=== PATIENT | female | born 1990 | race Caucasian/White ===

== ENCOUNTER 2023-08-27 13:06 | Emergency (ER) | payer BC, SELFPAY ==
[2023-08-27 13:11] VITALS: BP 119/79; PULSE 95; TEMP 36.6; O2SAT 99; BMI 26.6
--- NOTE | 2023-08-27 13:21 | ECG_ITS ---
The [facility] Test Date: 2023-08-27 Pat Name: Sena Damian Department: Room: - Gender: Female [employer]: : 1990 Requested By: Order Number: [id number] Reading MD: NILA RATLIFF Measurements Intervals Pollard Rate: 77 P: 26 CO: 114 QRS: 57 QRSD: 84 T: 38 QT: 356 QTc: 388 Interpretive Statements 1100 Sinus rhythm 2210 Short CO interval 9150 abnormal ECG No previous ECG available for comparison Electronically Signed On 08-27-2023 18:21:13 EDT by NILA RATLIFF
--- NOTE | 2023-08-27 13:21 | CT_ITS ---
The [address] [address] Patient Name: ALBERT ZHENG MRN: [id number] date: 1990 Sex: F Assigned Patient Location: ED.MAIN Current Patient Location: Accession/Order Number: [id number] Exam Date: 08/27/2023 14:00 Report Date: 08/27/2023 14:48 At the request of: HORTENSIA EDWARDS Procedure: CT head/brain wo con EXAM: CT head/brain wo con HISTORY: Headache, vertigo COMPARISON: None. TECHNIQUE: Axial CT scans through the head were obtained without IV contrast administration. Dose reduction techniques were achieved by using: automated exposure control and/or adjustment of mA and /or kV according to patient size and/or use of iterative reconstruction technique. FINDINGS: There is no acute intracranial hemorrhage or abnormal extra-axial fluid collection. No mass effect or midline shift is seen. There is no evidence of large acute territorial infarction. There is no hydrocephalus. To the limit of CT, the posterior fossa appears unremarkable. Partially empty sella is noted. The calvaria and extra cranial soft tissues are unremarkable. The visualized orbits show no abnormality. The visualized paranasal sinuses show no air-fluid level. Mastoid air cells are clear. CT/CT head/brain wo con IMPRESSION: No acute intracranial process. Partially empty sella which is a common normal variant but can be associated with headaches and visual disturbances. Electronically authenticated by: DOMO UNLU Date: 08/27/2023 14:48
--- NOTE | 2023-08-27 13:23 | ED_ITS ---
HPI HPI - General Adult General Chief complaint: Dizziness Stated complaint: DIZZINESS/NAUSEA Time Seen by Provider: 08/27/23 13:07 Source: patient Mode of arrival: walk-in Limitations: no limitations History of Present Illness HPI narrative: Patient is a 33-year-old female who presents to the emergency department for 2- day history of vertigo type symptoms. She denies fevers, cough or congestion. She states she felt dizzy yesterday and took Dramamine, her symptoms resolved but then returned this morning so she wanted to be evaluated. She states they are not as severe today. She states she had a migraine 2 weeks ago that was the worst migraine she is ever had. She has not had any persistent headache, visual loss, peripheral paresthesias. She had an episode of vomiting yesterday. At time of my initial interview, patient is sitting upright in no distress with the lights on with no photophobia or dizziness with change in the position of her head. She is not concerned for . Related Data Previous Rx's ?Medication ?Instructions ?Recorded meclizine 25 mg chewable tablet 25 mg PO QID PRN dizziness #12 tabs 08/27/23 (Antivert) ondansetron 4 mg disintegrating 4 mg PO Q6H PRN nausea and 08/27/23 tablet vomiting #12 tabs Allergies Allergy/AdvReac Type Severity Reaction Status Date / Time No Known Drug Allergies Allergy Verified 08/27/23 13:10 Opioid HPI Opioid Management Most Recent Opioid Data: No Data to Display Review of Systems ROS Constitutional Denies: fever or chills Ears, nose, mouth, and throat Denies: throat pain or nasal congestion Cardiovascular Denies: chest pain Respiratory Denies: shortness of breath Gastrointestinal Denies: nausea or vomiting Musculoskeletal Denies: back pain Integumentary/Breast Denies: rash Neurological Reports: headache, dizziness and vertigo; Denies: numbness in extremities or weakness in extremities Endocrine Denies: excessive urination Hematologic/Lymphatic Denies: easy bruising or easy bleeding Exam Narrative Exam Narrative: Gen.: Awake, alert, in no distress Head: Normocephalic, atraumatic ENT: Moist mucous membranes, Left TM is partially obscured by dark wax, right TM with minimal fluid Respiratory: No respiratory distress, lungs clear bilaterally Cardio: Regular rate and rhythm Extremities: Moves extremities equally, no injuries noted Psych: Normal mood and affect Neuro: No focal neuro deficit Skin: Warm, dry, intact Constitutional Vital Signs, click to edit/add: Last Vital Signs Temp 97.9 F 08/27/23 13:11 Pulse 83 08/27/23 14:00 Resp 14 08/27/23 14:00 BP 119/79 08/27/23 13:11 Pulse Ox 99 08/27/23 13:11 O2 Del Method Room Air 08/27/23 13:11 Course Vital Signs Vital signs: Vital Signs Temperature 97.9 F 08/27/23 13:11 Pulse Rate 95 H 08/27/23 13:11 Respiratory Rate 18 08/27/23 13:11 Blood Pressure 119/79 08/27/23 13:11 Pulse Oximetry 99 08/27/23 13:11 Oxygen Delivery Method Room Air 08/27/23 13:11 Temperature 97.9 F 08/27/23 13:11 Pulse Rate 83 08/27/23 14:00 Respiratory Rate 14 08/27/23 14:00 Blood Pressure 119/79 08/27/23 13:11 Pulse Oximetry 99 08/27/23 13:11 Oxygen Delivery Method Room Air 08/27/23 13:11 Medical Decision Making MDM Narrative Medical decision making narrative: Patient treated with IV fluids, Zofran, Antivert. Vital signs are within normal limits. Her lab studies are unremarkable and CT of the brain is also within normal limits. Patient is discharged home with Antivert and Zofran. She was given Debrox for the left ear to irrigate it. She should follow-up with PCP and return to the ER if symptoms change or worsen. Her CT of the brain shows a partially empty sella turcica, she was made aware of this result which may contribute to Headaches, she should follow-up with neurology for this. She was given a referral for neurology for follow-up as well. Medical Records Medical records reviewed: Yes I reviewed the patient's medical records Lab Data Lab results reviewed: Yes I reviewed the patient's lab results Labs: Lab Results 08/27/23 08/27/23 Range/Units 13:34 13:38 WBC 12.3 H (4.0-11.0) 10^3/uL RBC 4.24 (4.20-5.40) 10^6/uL Hgb 13.2 (12.0-16.0) g/dL Hct 39.9 (36.0-48.0) % MCV 94.1 (81.0-99.0) fL MCH 31.1 (26.7-34.0) pg MCHC 33.1 (29.9-35.2) g/dL RDW 13.1 (11.0-15.0) % Plt Count 291 (150-450) 10^3/uL MPV 10.0 (9.5-13.5) fL Neut % (Auto) 62.3 (43.0-75.0) % Lymph % (Auto) 24.3 (20.5-60.0) % Pershing % (Auto) 8.3 (1.7-12.0) % Eos % (Auto) 4.2 (0.9-7.0) % Baso % (Auto) 0.6 (0.2-2.0) % Neut # (Auto) 7.7 H (1.4-6.5) 10^3/uL Lymph # (Auto) 3.0 (1.2-3.8) 10^3/uL Pershing # (Auto) 1.0 H (0.3-0.8) 10^3/uL Eos # (Auto) 0.5 (0.0-0.7) 10^3/uL Baso # (Auto) 0.1 (0.0-0.1) 10^3/uL Abs Immat Gran (auto) 0.04 H (0.00-0.03) 10^3/uL Imm/Tot Granulo (auto) 0.3 (0.0-0.5) % Sodium 139 (136-145) mmol/L Potassium 3.9 (3.5-5.1) mmol/L Chloride 104 (98-107) mmol/L Carbon Dioxide 27.0 (21.0-32.0) mmol/L Anion Gap 11.9 BUN 12.0 (7.0-18.0) mg/dL Creatinine 0.86 (0.55-1.02) mg/dL Est GFR ( Amer) >60 (>=60) Est GFR (Non-Af Amer) >60 (>=60) BUN/Creatinine Ratio 14.0 Glucose 95 (74-106) mg/dL Calcium 9.0 (8.5-10.1) mg/dL Total Bilirubin 0.2 (0.2-1.0) mg/dL AST 11 L (15-37) U/L ALT 18 (14-59) U/L Alkaline Phosphatase 70 (46-116) U/L Total Protein 6.9 (6.4-8.2) g/dL Albumin 3.4 (3.4-5.0) g/dL Globulin 3.5 g/dL Albumin/Globulin Ratio 1.0 Serum HCG, Qual Negative (NEGATIVE) Urine Color Lt. yellow (YELLOW) Urine Clarity Clear (CLEAR) Urine pH 6.5 (5.0-9.0) Ur Specific Nitro <=1.005 A (1.005-1.025) Urine Protein Negative (NEG/TRACE) mg/dL Urine Glucose (UA) Negative (NEGATIVE) mg/dL Urine Ketones Negative (NEGATIVE) mg/dL Urine Occult Blood Negative (NEGATIVE) Urine Nitrite Negative (NEGATIVE) Urine Bilirubin Negative (NEGATIVE) Urine Urobilinogen 0.2 (0.2-1.0) EU/dL Ur Leukocyte Esterase Negative (NEGATIVE) Imaging Data CT scan - head: Attestation: I have reviewed the pertinent imaging results. Radiologist's impression: ITS Impressions Head CT 08/27/23 13:21 IMPRESSION: No acute intracranial process. Partially empty sella which is a common normal variant but can be associated with headaches and visual disturbances. Electronically authenticated by: DOMO GALVAN Date: 08/27/2023 14:48 ECG Data Attestation: I personally reviewed and interpreted this ECG as follows: (Normal sinus rhythm at a rate of 77, no acute ST elevation or ectopy. EKG reviewed by attending physician) Discharge Plan Discharge Stand Alone Forms: Portal Instructions Chief Complaint: Dizziness Clinical Impression: Vertigo, Impacted cerumen of left ear Patient Disposition: Home, Self-Care Time of Disposition Decision: 14:58 Condition: Good Prescriptions / Home Meds: New ondansetron 4 mg tablet,disintegrating 4 mg PO Q6H PRN (Reason: nausea and vomiting) Qty: 12 0RF meclizine [Antivert] 25 mg tablet,chewable 25 mg PO QID PRN (Reason: dizziness) Qty: 12 0RF Print Language: Greenlandic Instructions: Vertigo (ED) Additional Instructions: Follow up with neurology for continued headaches Referrals: Gilbert Jim DO [Physician] - As needed Physician,Non-Staff, MD [Primary Care Provider] - 1 week
[2023-08-27 13:28] VITALS: PULSE 84
[2023-08-27 13:40] VITALS: PULSE 77
[2023-08-27] MEDS: ONDANSETRON PF 4 MG/2 ML VIAL IV (13:46)
[2023-08-27] MEDS: MECLIZINE HCL 12.5 MG TABLET 25 MG PO (13:46)
[2023-08-27] MEDS: 0.9 % SODIUM CHLORIDE 1,000 ML 999 ML IV (13:47)
[2023-08-27 14:00] VITALS: PULSE 83
[2023-08-27] MEDS: CARBAMIDE PEROXIDE 6.5% EAR DROPS 300 DROP/15 ML BOTTLE 10 DROP OT (14:01)
[2023-08-27 14:03] LABS: Basophils Absolute Auto 0.1 10^3/uL (0.0-0.1); Basophils Percent Auto 0.6 % (0.2-2.0); Eosinophils Absolute Auto 0.5 10^3/uL (0.0-0.7); Eosinophils Percent Auto 4.2 % (0.9-7.0); Hematocrit 39.9 % (36.0-48.0); Hemoglobin 13.2 g/dL (12.0-16.0); Immature Granulocytes Abs Auto 0.04 10^3/uL (0.00-0.03); Immature Granulocytes Pct Auto 0.3 % (0.0-0.5); Lymphocytes Percent Auto 24.3 % (20.5-60.0); Mean Corpuscular HGB Conc 33.1 g/dL (29.9-35.2); Mean Corpuscular Hemoglobin 31.1 pg (26.7-34.0); Mean Corpuscular Volume 94.1 fL (81.0-99.0); Monocytes Percent Auto 8.3 % (1.7-12.0); Neutrophils Absolute Auto 7.7 10^3/uL (1.4-6.5); Neutrophils Percent Auto 62.3 % (43.0-75.0); Platelet Count 291 10^3/uL (150-450); Red Blood Count 4.24 10^6/uL (4.20-5.40); Red Cell Distribution Width 13.1 % (11.0-15.0); White Blood Count 12.3 10^3/uL (4.0-11.0)
[2023-08-27 14:05] VITALS: PULSE 74
[2023-08-27 14:05] LABS: HCG Qualitative NEGATIVE (NEGATIVE); Internal Control Within Normal Limits
[2023-08-27 14:05] LABS: Bilirubin Urine NEGATIVE (NEGATIVE); Blood Urine NEGATIVE (NEGATIVE); Clarity Urine CLEAR (CLEAR); Color Urine LT. YELLOW (YELLOW); Glucose Urine UA NEGATIVE (NEGATIVE); Ketones Urine NEGATIVE (NEGATIVE); Leukocyte Esterase Urine NEGATIVE (NEGATIVE); Nitrite Urine NEGATIVE (NEGATIVE); Protein Urine NEGATIVE (NEG/TRACE); Specific Gravity Urine <=1.005 (1.005-1.025); Urobilinogen Urine 0.2 EU/dL (0.2-1.0); pH Urine 6.5 (5.0-9.0)
[2023-08-27 14:07] LABS: Urine Microscopic Indicated NO
[2023-08-27 14:10] LABS: Alanine Aminotransferase 18 U/L (14-59); Albumin Level 3.4 g/dL (3.4-5.0); Alkaline Phosphatase 70 U/L (46-116); Anion Gap 11.9; Aspartate Amino Transferase 11 U/L (15-37); Bilirubin Total 0.2 mg/dL (0.2-1.0); Chloride 104 mmol/L (98-107); Estimated GFR (African America >60 (>=60); Estimated GFR (Non-African Ame >60 (>=60); Globulin 3.5 g/dL; Glucose 95 mg/dL (74-106); Potassium 3.9 mmol/L (3.5-5.1); Sodium 139 mmol/L (136-145); Total Protein 6.9 g/dL (6.4-8.2)
== END 2023-08-27 15:14 | disposition home or self-care (01) ==
PROVIDERS: Physician Assistant; Emergency Provider Emergency Medicine
DX: R42 Dizziness and giddiness (principal); H61.22 Impacted cerumen, left ear
CPT/HCPCS: 36415; 70450; 80053; 81003; 84703; 85025; 93005; 96374; 99285; J2405